=== PATIENT | female | born 1990 | race Caucasian/White ===

== ENCOUNTER → 2017-12-27 13:40 | Outpatient (CLI) | payer BC, SELFPAY ==
--- NOTE | 2017-12-27 13:59 | US_ITS ---
US breast LT complete Ordering Physician: Lolis Hernandez Patient Age: 27 years: Female HISTORY: ITS.REASON: LT BREAST LUMP TECHNIQUE: Ultrasound left breast, including axillary survey COMPARISON : None FINDINGS In this age patient I would prefer utilizing ultrasound rather than mammography to survey the breast. This is because the breast is more radiosensitive at this younger age and often very dense limiting mammography Today's ultrasound does show 2 small cystic areas. At 12:00 there is a small round 5.7 mm benign-appearing round area. This round hypoechoic area with some minimal internal echoes most evident at anterior aspect of this may reflect may reflect a debris-filled cyst versus could reflect a small developing fibroadenoma in that there is some mild shadowing rather than through transmission. It is Located 5 mm defect in the skin at the mid zone of the breast. & thus may be palpable. Verbally The technologist suggested this correlated with the palpable area ( although this was not written on the images.). I would suggest follow-up ultrasound 5-6 months for this ultrasound benign appearing focus. If it should become more evident clinically repeat ultrasound prior to this warranted At 2 o'clock position is a tiny 3.8 mm cyst. Axillary survey unremarkable benign-appearing axillary nodes IMPRESSION: 1. At 12:00 there is a 5.7 mm round benign appearing area likely debris-filled cyst although could reflect a small developing benign fibroadenoma. Recommend ultrasound follow-up in 6 months to confirm stability 2. Tiny 3.8 mm cyst at 2 o'clock position also noted . BI-RADS Category: 3 Benign Finding Short Term Follow-up RECOMMENDED FOLLOW-UP: 6M - 6 MONTH FOLLOW-UP Ultrasound left breast in 5-6 months suggested (A letter has been sent to the patient regarding results of the study.)
== END ==
PROVIDERS: Visit Provider Nurse Practitioner Family
DX: N63.20 Unspecified lump in the left breast, unspecified quadrant (principal)
CPT/HCPCS: 76641

== ENCOUNTER → 2018-07-06 09:53 | Outpatient (CLI) | payer BC, SELFPAY ==
--- NOTE | 2018-07-06 09:58 | US_ITS ---
US breast LT complete INDICATION: Follow-up probably abnormality left breast ORDERING PHYSICIAN: Tami Arce PATIENT AGE: 27 years COMPARISON: 12/27/2017 TECHNIQUE: Left breast ultrasound FINDINGS: At the 12:00 region there are 3 hypoechoic areas in the subcutaneous tissues one of which is 6 x 4 mm. This is not readily demonstrated on the previous exam. There are some increased echoes anteriorly possibly due to reverberation artifact. There is an additional hypoechoic nodule in the subcutaneous region at 6 mm at the 12:00 position. This is not significant change. There is decreased through transmission of sound on this nodule. Additionally there is a third nodule at the 12:00 position which is hypoechoic somewhat ill-defined at 10 x 8 mm. There is poor through transmission of sound. There is a small hyperechoic nodule at 12:00 as well suggesting a small lipoma at 8 x 5 mm. IMPRESSION: There are 3 hypoechoic nodules corresponding to the area of palpable amount. One is unchanged and 2 were not identified previously. These do not have simple cystic characteristics but could be complex cysts. Suggest ultrasound guided aspiration of these nodules for further evaluation BI-RADS Category: 4 Suspicious Abnormality-Biopsy Considered RECOMMENDED FOLLOW-UP: BIO - BIOPSY RECOMMENDED (A letter has been sent to the patient regarding results of the study.)
== END ==
PROVIDERS: PCP Nurse Practitioner; Visit Provider Nurse Practitioner
DX: N63.20 Unspecified lump in the left breast, unspecified quadrant (principal)
CPT/HCPCS: 76641

== ENCOUNTER → 2018-08-03 10:10 | Outpatient (CLI) | payer BC, SELFPAY ==
--- NOTE | 2018-08-03 | MM_ITS ---
MM Dig mamm DX unilat LT CAD INDICATION: Follow-up abnormal ultrasound, palpable amount of left breast ORDERING PHYSICIAN: Tami Arce PATIENT AGE: 28 years COMPARISON: 07/06/2018 TECHNIQUE: Left mammogram performed along spot compression views FINDINGS: There is average fibroglandular tissue. There are multiple benign-appearing nodules of the left breast some of which have peripheral coarse calcification consistent with a oil cysts. 2 of the hypoechoic nodules at 12:00 outer on the ultrasound is felt to represent oil cysts with hyperechoic marley and poor through transmission of sound.. There is a 8mm well circumscribed nodule in the retroareolar region. This area compressed out on focal spot compression views. No malignant appearing mass or malignant appearing microcalcifications evident IMPRESSION: Benign findings, no evidence of malignancy BI-RADS Category 2 benign Recommend follow-up as clinically warranted (A letter has been sent to the patient regarding results of the study.)
--- NOTE | 2018-08-03 10:22 | US_ITS ---
US breast LT complete, US biopsy guidance INDICATION: Left breast nodule ORDERING PHYSICIAN: Tami Arce PATIENT AGE: 28 years COMPARISON: None TECHNIQUE: Following obtaining informed consent under a septic conditions and local anesthesia with 1% lidocaine using sonographic guidance 2 passes were made into the hypoechoic left breast nodule at 12:00 near the nipple one with a 25-gauge needle and one with a 21-gauge needle. Specimen was given to cytology. The patient tolerate procedure well without evidence of immediate consultation. Cytology: Negative for malignancy, compatible with a fibroadenoma. IMPRESSION: Successful sonographic guided fine needle aspiration of left breast nodule at 12:00 showing benign findings Recommend 6 month sonographic follow-up to confirm stability of the other hypoechoic nodules
== END ==
PROVIDERS: PCP Nurse Practitioner; Visit Provider Nurse Practitioner
DX: N63.20 Unspecified lump in the left breast, unspecified quadrant (principal)
CPT/HCPCS: 10022; 76641; 76942; 77065

== ENCOUNTER → 2018-12-15 08:49 | Outpatient (CLI) | payer BC, SELFPAY ==
--- NOTE | 2018-12-15 08:57 | US_ITS ---
US abdomen limited History:Upper abdominal pain, chest pain, nausea after eating Ordering Physician:Lolis Hernandez Patient Age: 28 years Comparison:None Findings: Pancreas:Unremarkable. No obvious mass or abnormal fluid collection. No ductal dilatation Liver:Unremarkable. No obvious mass or abnormal fluid collection. No ductal dilatation Right Kidney:Unremarkable. Normal size and echogenicity. No hydronephrosis Gallbladder:No gallstones, gallbladder wall thickening, pericholecystic fluid, or biliary dilatation. Impression:Negative gallbladder/right upper quadrant ultrasound
--- NOTE | 2018-12-15 08:57 | US_ITS ---
US thyroid HISTORY: ITS.REASON: THYROMEGLY ORDERING PHYSICIAN: Lolis Hernandez PATIENT AGE: 28 years Comparison: None FINDINGS: The right lobe measures 4.9 x 2 x 1.9 cm. No discrete nodule. The left lobe measures 4.9 x 1.8 x 1.8 cm. There is a 10 mm solid appearing hypoechoic nodule in the lower pole. The nodule is well-circumscribed with smooth borders with no obvious calcifications. IMPRESSION: 1. Thyroid enlargement/goiter. 2. 10 mm hypoechoic well-circumscribed smooth nodule in the lower pole on the left which is developed since the previous exam. Recommend 6 month follow-up to confirm stability.
== END ==
PROVIDERS: PCP Nurse Practitioner Family; Visit Provider Nurse Practitioner Family
DX: R10.11 Right upper quadrant pain (principal); E01.0 Iodine-deficiency related diffuse (endemic) goiter
CPT/HCPCS: 76536; 76705

== ENCOUNTER → 2019-01-02 14:01 | Outpatient (CLI) | payer BC, SELFPAY ==
[2019-01-02 14:18] LABS: Basophils % 0.5 % (0.1-2.0); Eosinophils # 0.2 K/mm3 (0.0-0.4); Eosinophils % 2.5 % (0.1-12.0); Hematocrit 37.5 % (37.0-47.0); Lymphocytes # 1.9 K/mm3 (0.7-4.5); Mean Corpuscular HGB Conc 32.1 g/dL (31.8-35.4); Mean Corpuscular Hemoglobin 25.6 pg (27.0-31.2); Mean Corpuscular Volume 79.8 fl (81-99); Mean Platelet Volume 7.8 fl (7.4-10.4); Monocytes # 0.4 K/mm3 (0.1-1.0); Monocytes % 5.6 % (1.7-9.3); Neutrophils % 66.4 % (37.0-80.0); Platelet Count 413 K/mm3 (142-424); Red Cell Distribution Width 14.8 % (11.5-17.5); White Blood Count 7.5 K/mm3 (4.8-10.8)
[2019-01-02 16:03] LABS: Anion Gap 12.1 mEq/L (5-15); Blood Urea Nitrogen 11 mg/dL (7-18); Calcium 8.9 mg/dL (8.5-10.1); Carbon Dioxide 28 mmol/L (21.0-32.0); Chloride 105 mmol/L (98-107); Creatinine,Serum 0.66 mg/dL (0.55-1.02); Estimated Glomerular Filt Rate 108 ml/min (>60); GFR (African American) 131 ML/MIN (>60); Glucose 105 mg/dL (74-106); Potassium 4.1 mmoL/L (3.5-5.1); Sodium 141 mmol/L (136-145); T4 (Thyroxine) 8.4 ug/dl (4.7-13.3); Thyroid Stimulating Hormone 2.17 uIU/ml (0.358-3.740)
[2019-01-04 14:39] LABS: Triiodothyronine (T3) Free 3.7 pg/mL (2.0-4.4)
== END ==
PROVIDERS: Visit Provider Otolaryngology
DX: E04.1 Nontoxic single thyroid nodule (principal)
CPT/HCPCS: 36415; 80048; 84436; 84443; 84481; 85025

== ENCOUNTER → 2019-01-06 08:46 | Outpatient (CLI) | payer BC, SELFPAY ==
--- NOTE | 2019-01-06 08:47 | FL_ITS ---
EXAM: Barium swallow/esophagram. INDICATION: ITS.REASON: Odynophagia ORDERING PHYSICIAN: Schuyler Garcia MD PATIENT AGE: 28 years COMPARISON: None TECHNIQUE: In the upright position the patient was observed to swallow barium in both the AP and lateral view. The cervical esophagus was examined under fluoroscopy with images obtained. The patient was then placed prone in the right anterior oblique position and was observed to swallow barium with Valsalva technique . FLUOROSCOPY TIME: 54 seconds FINDINGS: There was no evidence of aspiration. There was normal peristalsis. No filling defects or mucosal abnormalities. No masses or strictures. No evidence of hiatal hernia or reflux IMPRESSION: Negative barium swallow.
== END ==
PROVIDERS: PCP Nurse Practitioner Family; Visit Provider Otolaryngology
DX: R13.10 Dysphagia, unspecified (principal)
CPT/HCPCS: 74220

== ENCOUNTER → 2019-03-16 13:38 | Outpatient (CLI) | payer BC, SELFPAY ==
--- NOTE | 2019-03-16 13:48 | MM_ITS ---
MM Dig mamm DX unilat LT CAD Left breast ultrasound complete with axilla INDICATION: Follow-up abnormal mammogram ORDERING PHYSICIAN: Lolis Hernandez APRN PATIENT AGE: 28 years COMPARISON: 08/03/2018 TECHNIQUE: Standard images performed along with spot compression views and left breast ultrasound FINDINGS: There is mostly fatty replaced fibroglandular tissue. Multiple benign-appearing nodules are once again noted. Some of these contain coarse calcifications and are consistent with a coil cysts. Nodular density in the retroareolar region does not appear significantly changed. A palpable area is reported in the upper inner aspect of the left breast. At this region there is a oval density at 11 x 7 mm with a central isodense area measuring 5 mm. Previously there was an oil cyst at this region. No irregular parenchymal mass or malignant appearing microcalcifications evident. Left breast ultrasound: In the palpable area at 11:00 there is a 9 x 7 mm mixed nodule which is anechoic centrally with shadowing posteriorly. This has increased in size since the previous exam now with a isoechoic soft tissue component. There are other hypoechoic nodules with posterior shadowing including an 8 mm nodule at 2:00 and a 12 x 9 mm nodule 1:00. Behind the nipple there is a 7 mm hypoechoic nodule with shadowing . A 3 mm hypoechoic nodules present at 3:00. IMPRESSION: Palpable nodule at 11:00 is felt to represent adenoidal cyst. There is some complex component to this with increased soft tissue density surrounding the periphery possibly related to some underlying inflammation which may be seen with cyst rupture or leak.. Ultrasound-guided aspiration could be performed if clinically desired BI-RADS Category: 3 Probably Benign Finding Short Term Follow-up RECOMMENDED FOLLOW-UP: 3M - 3 MONTH FOLLOWUP FINDINGS are probably benign. Recommend 3 month ultrasound follow-up to confirm stability or resolution. Fine-needle aspiration could be performed of this nodule if patient so desires for patient comfort and piece of mind. (A letter has been sent to the patient regarding results of the study.)
== END ==
PROVIDERS: PCP Nurse Practitioner Family; Visit Provider Nurse Practitioner Family
DX: N60.02 Solitary cyst of left breast (principal)
CPT/HCPCS: 76641; 77065

== ENCOUNTER → 2021-10-08 09:25 | Outpatient (CLI) | payer OTHER, SELFPAY | PROVIDERS: PCP Family Medicine; Visit Provider Nurse Practitioner | DX: Z20.822 Contact with and (suspected) exposure to COVID-19 (principal) | CPT/HCPCS: C9803; U0003; U0005 ==

== ENCOUNTER 2021-11-18 11:21 | Emergency (ER) | payer OTHER, SELFPAY ==
[2021-11-18 12:20] VITALS: BP 149/98; PULSE 102; RESP 20; TEMP 37.1; O2SAT 96; BMI 53.1
[2021-11-18 12:38] LABS: Strep Scrn Group A (Rapid) Negative (Negative); UTC Influenza A Antigen Negative (Negative)
[2021-11-18 12:39] LABS: UTC Influenza B Antigen Negative (Negative)
--- NOTE | 2021-11-18 12:51 | HMH.EDUTC ---
[facility] – [place] Disposition Clinical Impression: Viral syndrome Disposition: Home, Self-Care Condition on Discharge: Good Instructions: DI for Viral Syndrome, DI for Fever (Symptom) -- Adult, DI for COVID-19 (Suspected or Confirmed ), Preventing the Spread of Coronavirus Discharge Instructions Additional Instructions: *Monitor Temp, Over the counter Motrin or Tylenol as directed/as needed Tylenol every 4 hours and Motrin every 6 hours (as long as your family doctor has told you that you can take it) for fever or pain. and straight to ER if unable to lower temp less than 101.0 after medication given *Warm salt water gargles may help to soothe the throat *Throat Lozenges *Warm fluids like tea with honey may help to soothe the throat *Sleep elevated *Humidifier/Vaporizer Your throat swab was sent for culture. Those results are typically sent to your primary care. Be sure to follow up in 2-3 days with your family doctor/primary care physician if no improvement so they can review those result and treat if necessary. If you don?t have a primary care doctor, I recommend you get one but in the mean time, you will have to return to a walk in clinic Follow up IMMEDIATELY for new or worsening symptoms or no Noticeable improvement over the next 48-72 hours. 911 for difficulty breathing or swallowing You were tested for today for COVID19 your test result should be back in the next 24-48 hours, you may check your COVID test result on the [facility] My Health Portal if you have trouble logging on you may call support for assistance You was given a handout with instructions for Self Quarantine and Self isolation for while you wait on test results and what to do if they are positive If you are positive the Health Dept will be contacting you also Make sure to take your Vitamins Vit. C Vit D and Zinc if you can take them Referrals: Provider,Referral, [Primary Care Provider] - As needed Forms: Work/School Release Time of Disposition: 12:58 Medical Decision Making - Edgar Inquiry Pt receiving controlled substance: No Egdar was queried for this patient: No Vital Signs: 11/18/21 12:20 Temperature 98.8 F Temperature Source Oral Pulse Rate [Right Brachial] 102 H Respiratory Rate 20 Blood Pressure [Right Arm] 149/98 H Blood Pressure Mean [Right Arm] 115 Blood Pressure Source [Right Arm] Automatic Cuff Blood Pressure Position [Right Arm] Sitting 02 Sat by Pulse Oximetry 96 Oxygen Delivery Method Room Air - Lab Data Lab results reviewed: Yes: I reviewed the patient's lab results. Lab Results 11/18/21 12:15: Group A Strep Rapid Negative 11/18/21 12:15: Influenza Type A Ag Negative, Influenza Type B Ag Negative Orders (Tests/Meds): ORDERS Category Date Time Status Covid-19 Nasal PCR ([facility]) Routine Lab 11/18/21 12:15 Received Strep Screen Confirmation Stat Micro 11/18/21 12:15 [facility] - General Stated complaint: sore throat,cough,exposure Time Seen by Provider: 11/18/21 12:51 Mode of Arrival: Ambulatory Source of Information: Patient Limitations: No Limitations Description of Symptoms (Recalled from Triage Doc. 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
[2021-11-18 13:01] VITALS: BP 149/98; PULSE 102; RESP 20; TEMP 37.1; O2SAT 96
== END 2021-11-18 13:10 | disposition home or self-care (01) ==
PROVIDERS: Emergency Provider Nurse Practitioner
DX: U07.1 COVID-19 (principal); B34.9 Viral infection, unspecified
CPT/HCPCS: 87430; 87804; 99203; C9803; G0463; U0003; U0005

== ENCOUNTER → 2022-03-12 11:13 | Outpatient (CLI) | payer OTHER, SELFPAY ==
--- NOTE | 2022-03-12 11:17 | US_ITS ---
PROCEDURE INFORMATION: Exam: US Left Breast, Complete Exam date and time: 03/12/2022 11:21 AM Age: 31 years old Clinical indication: Palp areas; Left breast pain TECHNIQUE: Imaging protocol: Complete ultrasound of all four quadrants of the Left breast and the retroareolar regions, including ultrasound of the axilla when performed. COMPARISON: BREASTLT US breast LT complete 03/16/2019 2:23 PM FINDINGS: Breast: Sonographic images of the left breast including the retroareolar region, all 4 quadrants and the axilla demonstrates a 0.6 cm coarse benign calcification in the 2 o'clock axis where the patient reports a palpable abnormality. Stable benign hypoechoic mass in the superficial aspect of the left 1 o'clock axis 10 cm from the nipple measures 0.8 x 0.8 cm. 0.6 cm cyst in the 3 o'clock axis 3 cm from the. Cursors were placed over slightly increased echogenicity within the subcutaneous fat in the 11 o'clock axis 12 cm from the measuring approximately 1.2 x 0.9 cm in dimension. On prior ultrasound dated 2018, a predominantly cystic structure was noted in this location. The findings on the current examination are likely the result of interval intervention and represents benign appearing fat necrosis. Clinical correlation is needed. No architectural distortion or acoustical shadowing. No skin thickening or axillary adenopathy. IMPRESSION: Multiple palpable abnormalities correspond to benign findings as described above.Further evaluation of a palpable abnormality should be based on clinical grounds regardless of radiographic findings or lack thereof. ASSESSMENT: BI-RADS Category 2: Benign
== END ==
PROVIDERS: PCP Nurse Practitioner Family; Visit Provider Obstetrics & Gynecology
DX: N64.4 Mastodynia (principal)
CPT/HCPCS: 76641

== ENCOUNTER → 2022-04-16 13:39 | Outpatient (CLI) | payer OTHER, SELFPAY ==
--- NOTE | 2022-04-16 13:43 | US_ITS ---
FINAL REPORT CLINICAL HISTORY: THYROID GOITER, THYROID NODULE COMPARISON: December 15, 2018 FINDINGS: THYROID ULTRASOUND The right lobe of the thyroid measures 5.0 x 1.7 x 1.5 cm. The left lobe of the thyroid measures 5.3 x 1.7 x 1.5 cm.. The parenchyma shows normal echogenicity. There is a solid hypoechoic TI-RADS 4 nodule in the left lobe of the thyroid measuring 1.2 x 0.8 x 0.7 cm, stable from prior. IMPRESSION: Stable TI-RADS 4 left thyroid nodule. Reviewed, Interpreted and Dictated by Matthew Leija III, MD Transcribed by Aaron Mirza Authenticated and [facility]
== END ==
PROVIDERS: PCP Nurse Practitioner Family; Visit Provider Nurse Practitioner Family
DX: E04.1 Nontoxic single thyroid nodule (principal)
CPT/HCPCS: 76536

== ENCOUNTER 2023-05-28 20:52 | Emergency (ER) | payer OTHER, SELFPAY ==
--- NOTE | 2023-05-28 20:53 | ECG_ITS ---
APPROVED REPORT Exam: Resting ECG HR:104 bpm ECG Measurements Heart Rate 104 AXES MD 163 P 70 QRSd 83 QRS 59 QT 326 T 16 QTc 386 Conclusion SINUS TACHYCARDIA POSSIBLE RIGHT VENTRICULAR CONDUCTION DELAY [RSR (QR) IN V1/V2] ABNORMAL RHYTHM ECG UNCONFIRMED REPORT Electronically signed by : George Crowe MD 05/29/2023 20:30:27
[2023-05-28 20:57] VITALS: BP 156/88; PULSE 109; RESP 19; TEMP 37.3; O2SAT 99; BMI 53.1
[2023-05-28 21:02] VITALS: PULSE 109
--- NOTE | 2023-05-28 21:05 | XR_ITS ---
PROCEDURE INFORMATION: Exam: XR Chest Exam date and time: 05/28/2023 9:25 PM Age: 32 years old Clinical indication: Pain; Chest pressure; Additional info: Chest pain TECHNIQUE: Imaging protocol: Radiologic exam of the chest. Views: 1 view. COMPARISON: CR CXR2V XR chest 2V 01/03/2019 10:12 PM FINDINGS: Lungs: Hypoaeration of the lungs which are clear for the degree of inspiration. Pleural spaces: No pleural effusion. No pneumothorax. Heart/Mediastinum: Cardiomediastinal silhouette is normal. Bones/joints: No acute abnormality. IMPRESSION: No acute abnormality.
[2023-05-28 21:17] LABS: Basophils # 0.1 K/mm3 (0-0.2); Basophils % 0.6 % (0.1-2.0); Eosinophils # 0.3 K/mm3 (0.0-0.4); Eosinophils % 2.2 % (0.1-12.0); Hematocrit 42.1 % (37.0-47.0); Hemoglobin 13.4 g/dL (12.2-16.2); Lymphocytes # 2.9 K/mm3 (0.7-4.5); Mean Corpuscular HGB Conc 31.8 g/dL (31.8-35.4); Mean Corpuscular Hemoglobin 25.3 pg (27.0-31.2); Mean Corpuscular Volume 79.7 fl (81-99); Mean Platelet Volume 8.6 fl (7.4-10.4); Monocytes # 0.6 K/mm3 (0.1-1.0); Monocytes % 5.4 % (1.7-9.3); Neutrophils # 7.3 K/mm3 (1.8-7.8); Neutrophils % 65.8 % (37.0-80.0); Platelet Count 408 K/mm3 (142-424); Red Blood Count 5.28 M/mm3 (4.20-5.40); Red Cell Distribution Width 14.3 % (11.5-17.5); White Blood Count 11.2 K/mm3 (4.8-10.8)
[2023-05-28 21:19] LABS: HCG Qualitative, Serum Negative (Negative)
[2023-05-28 21:21] LABS: Alanine Aminotransferase 41 U/L (12-78); Albumin Level 4.5 g/dl (3.5-5.0); Albumin/Globulin Ratio 1.4 (1.1-1.8); Alkaline Phosphatase 103 U/L (38-126); Anion Gap 13.8 mEq/L (5-15); Aspartate Amino Transferase 28 U/L (14-36); Blood Urea Nitrogen 15 mg/dl (7-17); Calcium 9.1 mg/dl (8.4-10.2); Carbon Dioxide 26 mmol/L (22.0-30.0); Chloride 103 mmol/L (98-107); Creatinine Clearance Estimated 138 mL/min (50-200); Estimated Glomerular Filt Rate 117 ml/min (>60); GFR (African American) 142 ML/MIN (>60); Globulin 3.2 g/dL (1.3-3.2); Glucose 109 mg/dl (74-100); Potassium 3.8 mmoL/L (3.5-5.1); Sodium 139 mmol/L (136-145); Total Protein,Serum 7.7 g/dl (6.3-8.2)
[2023-05-28 21:22] LABS: Bilirubin,Total < 0.1 mg/dl (0.2-1.3)
[2023-05-28 21:25] LABS: Coronavirus 19, PCR Not Detected (NotDetected); Influenza A, PCR Not Detected (NotDetected); Influenza B, PCR Not Detected (NotDetected)
[2023-05-28 21:30] LABS: D-Dimer 0.43 ug/mL (0.0-0.5)
[2023-05-28 21:34] LABS: Troponin I < 0.01 ng/ml (0.00-0.034)
--- NOTE | 2023-05-28 21:34 | HMH.EDGENADL ---
Discharge Plan Disposition Patient Disposition: Home, Self-Care Condition: Good Prescriptions Prescriptions: No Action ibuprofen-famotidine [Duexis] 800-26.6 mg tablet 1 tab PO TID Referrals Follow up/Referrals: Provider,Referral, [Primary Care Provider] - See instructions Activity Restrictions/Add. Instructions Additional Instructions/Restrictions: You were evaluated in the emergency department today. Please follow-up closely with your primary care provider. Orally hydrate is much as possible. Take Tylenol and ibuprofen at home as needed for pain. Return to the emergency department for any new or worsening symptoms. Clinical Impressions Clinical Impression: Heat exhaustion, Chest pain Instructions Patient Instructions: DI for Heat Exhaustion and Heat Stroke, DI for Atypical Chest Pain Discharge ED Provider: Kanchan Bernstein General Adult HPI General Chief complaint: Chest Pain Stated complaint: CP Time Seen by Provider: 05/28/23 20:53 Mode of Arrival: Family Vehicle Source of Information: Patient Limitations: No Limitations Description of Symptoms (Recalled from ER Triage Doc. 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 Patient states she placed myself on the monitor and saw I was throwing PVC's every few beats and got concerned, especially when it was accompanied by the discomfort . No previous diagnosed medical history per her report. Slight hypertensive upon presentation. A&Ox4. Allergic to bee venom and bactrim atb. UTD on immunizations. History of Present Illness HPI narrative: This patient is a 32-year-old female who denies significant past medical history presenting to the emergency department for evaluation with concern for chest pain. Patient reports that she woke up this morning feeling unwell. She has that she was fatigued and could not get comfortable. She began having some discomfort in her substernal region that felt like indigestion, but it radiated down her left arm. Her left arm symptoms were intermittent and nothing seems to bring them on or make them go away. She states she has not felt like eating or drinking much at all today. 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 She felt her heart was racing and did not EKG on her self and noted possible right bundle branch block and PVCs. Given this, she came to the emergency department for evaluation. She denies any recent fevers, cough, shortness of breath, abdominal pain, nausea, vomiting, changes in bowel movements, rashes, swelling, or other issues. Related Data Home Medications Medication Instructions Recorded Confirmed ibuprofen 800 mg-famotidine 26.6 1 tab PO TID 03/09/22 04/06/22 mg tablet (Duexis) Allergies Allergy/AdvReac Type Severity Reaction Status Date / Time sulfamethoxazole Allergy Intermediate Verified 05/28/23 21:25 [From Bactrim] trimethoprim [From Bactrim] Allergy Intermediate Verified 05/28/23 21:25 [facility] Disclaimer: The information contained in this section may have been updated after the patient was seen, as this information can be updated by other users. Social History Smoking Status: Former smoker alcohol intake: never substance use type: denies use current occupational status: employed Travel in the last 8 weeks: None ROS Obtained: Yes All systems reviewed & no additional complaints except as documented 14 point review of systems obtained and negative except as mentioned in HPI. Physical Exam General General appearance: alert, in no apparent distress and obese Head Head exam: atraumatic and normocephalic Eye Eye exam: Present normal appearance, PERRL and EOMI ENT ENT exam: Present normal exam, normal or
[2023-05-28 22:59] VITALS: BP 138/82; PULSE 72; RESP 20; TEMP 36.6
== END 2023-05-28 23:01 | disposition home or self-care (01) ==
PROVIDERS: Emergency Provider Emergency Medicine
DX: R07.9 Chest pain, unspecified (principal); T67.5XXA Heat exhaustion, unspecified, initial encounter; M79.602 Pain in left arm; Z87.891 Personal history of nicotine dependence
CPT/HCPCS: 71045; 80053; 84484; 84703; 85025; 85378; 87636; 90471; 93005; 96361; 96374; 96375; 99285; J2405